=== PATIENT | male | born 1995 | race African-American/Black ===

== ENCOUNTER 2019-06-03 17:57 | Emergency (ER) | payer SELFPAY ==
[~2019-06-03] VITALS: Ht 165.1 cm; Wt 57.0 kg
[2019-06-03 19:13] VITALS: BP 125/78
== END 2019-06-03 21:14 | disposition left against medical advice (07) ==
LOC: ER 20:28
DX: R56.9 Unspecified convulsions (principal); Z53.21 Procedure and treatment not carried out due to patient leaving prior to being seen by health care provider